=== PATIENT | female | born 1955 | race Caucasian/White ===

== ENCOUNTER 2020-12-18 08:05 | Emergency (ER) | payer MEDICARE ==
[2020-12-18 09:42] LABS: URINE BILIRUBIN - DIPSTICK NEGATIVE (NEGATIVE); URINE BLOOD DIPSTICK LARGE (NEGATIVE); URINE GLUCOSE - DIPSTICK >=1000 mg/dL (NEGATIVE); URINE KETONE 15 mg/dL (NEGATIVE); URINE LEUK ESTERASE NEGATIVE (NEGATIVE); URINE PH 5.5 (4.5-8.0); URINE PROTEIN - DIPSTICK NEGATIVE (NEG-TRACE); URINE UROBILINOGEN - DIPSTICK 0.2 E.U./dL (0.2)
[2020-12-18 09:48] LABS: URINE COLOR STRAW; URINE NITRITE - DIPSTICK POSITIVE (Negative)
[2020-12-18 09:51] LABS: URINE BACTERIA MANY hpf; URINE EPITHELIAL CELLS FEW EPI/hpf (0-FEW)
[2020-12-18 09:57] LABS: INTERNATIONAL NORMALIZED RATIO 1.1 RATIO (0.7-1.3); PROTHROMBIN TIME 11.1 SECONDS (9.0-12.5)
[2020-12-18 10:19] LABS: ALBUMIN 3.7 g/dL (3.2-5.0); ALKALINE PHOSPHATASE 83 u/l (38-126); BILIRUBIN, TOTAL 1.2 mg/dL (0.0-1.4); BUN 8 mg/dL (8-23); BUN/CREATININE RATIO 12 (12-20 (CALC)); CARBON DIOXIDE 11 mmol/l (22-30); CHLORIDE 80 mmol/l (95-108); CREATININE 0.6 mg/dL (0.5-1.0); ETHYL ALCOHOL 0 mg/dl (0-30); GFR > 60 ML/MIN (>=60 (CALC)); GFR FOR AFR.AMER. > 60 ML/MIN (>=60 (CALC)); LIPASE 131 u/l (23-300); POTASSIUM 3.9 mmol/l (3.5-5.1); SGOT/AST 126 u/l (9-36); TOTAL PROTEIN 6.1 g/dL (6.3-8.2)
[2020-12-18 10:21] LABS: HEMATOCRIT 38.5 % (37.0-47.0); HEMOGLOBIN 14.6 g/dl (12.0-16.0); IMMATURE GRANULOCYTES 1.5 % (0.0-5.0); MEAN CELL VOLUME 84.1 fL CALC (80.0-100.0); MEAN CORPUSCULAR HGB 31.9 pG CALC (26.0-32.0); MEAN CORPUSCULAR HGB CONC 37.9 g/dL CAL (32.0-36.0); NEUT# 17.53 thou/uL (2.00-7.15); RED BLOOD COUNT 4.58 mill/uL (4.20-5.60); RED CELL DISTRI WIDTH 11.5 % (11.5-15.5)
[2020-12-18 10:32] LABS: ANION GAP 22 (6-22 (CALC)); CPK > 3200 u/l (30-165)
[2020-12-18 10:36] LABS: SODIUM 109 mmol/l (137-146)
[2020-12-18 10:37] LABS: MYOGLOBIN > 2000 ng/mL (0 - 62)
[2020-12-18 11:18] VITALS: BP 152/92
--- NOTE | 2020-12-20 11:55 | NUR ---
FINAL URINE CULTURE SHOWS E.COLI. CALLED AND FAXED DOWN THE RESULTS TO [facility] AT [phone] ON 12/20/20.
== END 2020-12-18 11:18 | disposition short-term general hospital (02) ==
LOC: ED 08:05
PROC: 0T9B70Z Drainage of Bladder with Drainage Device, Via Natural or Artificial Opening (ICD-10-PCS; principal; 2020-12-18)
DX: A41.9 Sepsis, unspecified organism (principal); R65.20 Severe sepsis without septic shock; I21.4 Non-ST elevation (NSTEMI) myocardial infarction; R56.9 Unspecified convulsions; E87.1 Hypo-osmolality and hyponatremia; F03.90 Unspecified dementia, unspecified severity, without behavioral disturbance, psychotic disturbance, mood disturbance, and anxiety; F20.9 Schizophrenia, unspecified; E66.9 Obesity, unspecified; R82.71 Bacteriuria; Z20.822 Contact with and (suspected) exposure to COVID-19
CPT/HCPCS: J1953; J2060

== ENCOUNTER 2021-03-22 17:17 | Emergency (ER) | payer MEDICARE ==
[~2021-03-22] VITALS: Ht 170.2 cm; Wt 72.0 kg
[2021-03-22 18:38] LABS: IMMATURE GRANULOCYTES 0.5 % (0.0-5.0); MEAN CORPUSCULAR HGB 30.3 pG CALC (26.0-32.0); MEAN CORPUSCULAR HGB CONC 33.9 g/dL CAL (32.0-36.0); NEUT# 6.18 thou/uL (2.00-7.15); RED BLOOD COUNT 5.28 mill/uL (4.20-5.60); RED CELL DISTRI WIDTH 12.4 % (11.5-15.5)
[2021-03-22 18:41] LABS: HEMATOCRIT 47.2 % (37.0-47.0); MEAN CELL VOLUME 89.4 fL CALC (80.0-100.0)
[2021-03-22 18:50] LABS: ALKALINE PHOSPHATASE 97 u/l (38-126); ANION GAP 18 (6-22 (CALC)); BILIRUBIN, TOTAL 0.9 mg/dL (0.0-1.4); BUN 13 mg/dL (8-23); BUN/CREATININE RATIO 15 (12-20 (CALC)); CARBON DIOXIDE 22 mmol/l (22-30); CHLORIDE 95 mmol/l (95-108); CREATININE 0.9 mg/dL (0.5-1.0); GFR > 60 ML/MIN (>=60 (CALC)); GFR FOR AFR.AMER. > 60 ML/MIN (>=60 (CALC)); POTASSIUM 4.5 mmol/l (3.5-5.1); SODIUM 130 mmol/l (137-146)
[2021-03-22 18:51] LABS: ALBUMIN 4.7 g/dL (3.2-5.0); SGOT/AST 23 u/l (9-36); TOTAL PROTEIN 7.8 g/dL (6.3-8.2)
[2021-03-22 20:20] LABS: URINE BILIRUBIN - DIPSTICK NEGATIVE (NEGATIVE); URINE BLOOD DIPSTICK NEGATIVE (NEGATIVE); URINE COLOR YELLOW; URINE GLUCOSE - DIPSTICK NEGATIVE (NEGATIVE); URINE KETONE NEGATIVE (NEGATIVE); URINE LEUK ESTERASE NEGATIVE (NEGATIVE); URINE PROTEIN - DIPSTICK NEGATIVE (NEG-TRACE); URINE UROBILINOGEN - DIPSTICK 0.2 E.U./dL (0.2)
[2021-03-22 20:21] LABS: URINE NITRITE - DIPSTICK NEGATIVE (Negative)
[2021-03-22 21:15] VITALS: BP 148/75
== END 2021-03-22 21:15 | disposition home or self-care (01) ==
LOC: ED 17:17
PROVIDERS: Emergency Medicine
PROC: 0T9B70Z Drainage of Bladder with Drainage Device, Via Natural or Artificial Opening (ICD-10-PCS; principal; 2021-03-22)
DX: F20.9 Schizophrenia, unspecified (principal); R33.9 Retention of urine, unspecified; E11.9 Type 2 diabetes mellitus without complications

== ENCOUNTER 2021-10-26 15:48 | Emergency (ER) | payer MEDICARE ==
[~2021-10-26] VITALS: Ht 170.2 cm; Wt 100.0 kg
[2021-10-26] VITALS (20 sets, daily range): BP systolic 128–165; BP diastolic 78–122
[2021-10-26 16:13] LABS: HEMATOCRIT 42.9 % (37.0-47.0); IMMATURE GRANULOCYTES 0.6 % (0.0-5.0); MEAN CELL VOLUME 91.3 fL CALC (80.0-100.0); MEAN CORPUSCULAR HGB 31.9 pG CALC (26.0-32.0); NEUT# 6.88 thou/uL (2.00-7.15); RED BLOOD COUNT 4.7 mill/uL (4.20-5.60); RED CELL DISTRI WIDTH 12.2 % (11.5-15.5)
[2021-10-26 16:28] LABS: PROTHROMBIN TIME 10.1 SECONDS (9.0-12.5)
[2021-10-26 16:29] LABS: ALBUMIN 5.3 g/dL (3.2-5.0); ALKALINE PHOSPHATASE 107 u/l (38-126); BILIRUBIN, TOTAL 0.6 mg/dL (0.0-1.4); BUN 14 mg/dL (8-23); BUN/CREATININE RATIO 14 (12-20 (CALC)); CARBON DIOXIDE 18 mmol/l (22-30); GFR FOR AFR.AMER. > 60 ML/MIN (>=60 (CALC)); GFR OTHER RACES 55 ML/MIN (>=60 (CALC)); POTASSIUM 4.4 mmol/l (3.5-5.1); SGOT/AST 31 u/l (9-36); SODIUM 124 mmol/l (137-146); TOTAL PROTEIN 8.5 g/dL (6.3-8.2)
[2021-10-26 16:36] LABS: ANION GAP 31 (6-22 (CALC)); CHLORIDE 79 mmol/l (95-108)
[2021-10-26 18:25] LABS: URINE BILIRUBIN - DIPSTICK NEGATIVE (NEGATIVE); URINE BLOOD DIPSTICK NEGATIVE (NEGATIVE); URINE COLOR YELLOW; URINE GLUCOSE - DIPSTICK NEGATIVE (NEGATIVE); URINE KETONE TRACE mg/dL (NEGATIVE); URINE LEUK ESTERASE NEGATIVE (NEGATIVE); URINE PROTEIN - DIPSTICK NEGATIVE (NEG-TRACE); URINE SPECIFIC GRAVITY 1.025; URINE UROBILINOGEN - DIPSTICK 0.2 E.U./dL (0.2)
[2021-10-26 18:27] LABS: URINE NITRITE - DIPSTICK NEGATIVE (Negative)
== END 2021-10-26 21:50 | disposition short-term general hospital (02) ==
LOC: ED 15:48
PROVIDERS: Family Medicine
PROC: 02HV33Z Insertion of Infusion Device into Superior Vena Cava, Percutaneous Approach (ICD-10-PCS; principal; 2021-10-26)
PROC: 0BH17EZ Insertion of Endotracheal Airway into Trachea, Via Natural or Artificial Opening (ICD-10-PCS; 2021-10-26)
PROC: 5A1935Z Respiratory Ventilation, Less than 24 Consecutive Hours (ICD-10-PCS; 2021-10-26)
PROC: 0T9B70Z Drainage of Bladder with Drainage Device, Via Natural or Artificial Opening (ICD-10-PCS; 2021-10-26)
DX: I63.9 Cerebral infarction, unspecified (principal); R47.81 Slurred speech; A41.9 Sepsis, unspecified organism; E87.2 Acidosis; I10 Essential (primary) hypertension; E11.9 Type 2 diabetes mellitus without complications
CPT/HCPCS: J1953; J2060; Q3014; Q9967

== ENCOUNTER 2021-11-01 19:15 | Emergency (ER) | payer MEDICARE ==
[~2021-11-01] VITALS: Ht 170.2 cm; Wt 75.4 kg
[2021-11-01] VITALS (15 sets, daily range): BP systolic 143–177; BP diastolic 95–120
[2021-11-01 20:26] LABS: IMMATURE GRANULOCYTES 0.3 % (0.0-5.0); MEAN CELL VOLUME 95.1 fL CALC (80.0-100.0); MEAN CORPUSCULAR HGB 31.7 pG CALC (26.0-32.0); MEAN CORPUSCULAR HGB CONC 33.3 g/dL CAL (32.0-36.0); NEUT# 3.37 thou/uL (2.00-7.15); RED BLOOD COUNT 3.66 mill/uL (4.20-5.60); RED CELL DISTRI WIDTH 13.1 % (11.5-15.5)
[2021-11-01 20:28] LABS: HEMATOCRIT 34.8 % (37.0-47.0); HEMOGLOBIN 11.6 g/dl (12.0-16.0)
[2021-11-01 20:39] LABS: BILIRUBIN, TOTAL 0.7 mg/dL (0.0-1.4); BUN 16 mg/dL (8-23); BUN/CREATININE RATIO 17 (12-20 (CALC)); CARBON DIOXIDE 21 mmol/l (22-30); CREATININE 0.9 mg/dL (0.5-1.0); GFR FOR AFR.AMER. > 60 ML/MIN (>=60 (CALC)); GFR OTHER RACES > 60 ML/MIN (>=60 (CALC)); POTASSIUM 3.9 mmol/l (3.5-5.1)
[2021-11-01 20:40] LABS: ALBUMIN 3.9 g/dL (3.2-5.0); ALKALINE PHOSPHATASE 185 u/l (38-126); ANION GAP 13 (6-22 (CALC)); CHLORIDE 103 mmol/l (95-108); SGOT/AST 70 u/l (9-36); SODIUM 133 mmol/l (137-146); TOTAL PROTEIN 6.5 g/dL (6.3-8.2)
[2021-11-01 21:27] LABS: ETHYL ALCOHOL 0 mg/dl (0-30)
[2021-11-01] MEDS ORDERED: BENADRYL ALLERG25 MG PO (22:18)
[2021-11-01] MEDS ORDERED: KEFLEX500 MG PO (22:18)
== END 2021-11-01 22:30 | disposition home or self-care (01) ==
LOC: ED 19:15
PROVIDERS: Emergency Medicine
DX: T14.8XXA Other injury of unspecified body region, initial encounter (principal); E11.9 Type 2 diabetes mellitus without complications; W57.XXXA Bitten or stung by nonvenomous insect and other nonvenomous arthropods, initial encounter; Y92.007 Garden or yard of unspecified non-institutional (private) residence as the place of occurrence of the external cause

== ENCOUNTER 2021-11-12 13:12 | Observation (INO) | payer MEDICARE ==
[2021-11-12] VITALS (22 sets, daily range): BP systolic 92–135; BP diastolic 59–89
[~2021-11-12] VITALS: Ht 170.2 cm; Wt 81.8 kg
[~2021-11-12 13:12] MED LIST: BENADRYL ALLERG25 MG PO; KEFLEX500 MG PO
--- NOTE | 2021-11-12 13:20 | NUR ---
PT ESCORTED VIA EMS STRETCHER TO ROOM 12 FOR EVAL OF HYPOTENSION AND DIZZINESS WITH AMS AFTER TAKING NEW SEIZURE MEDICATION
--- NOTE | 2021-11-12 14:30 | NUR ---
Reassessment of patient completed. No distress noted.
[2021-11-12 14:34] LABS: HEMATOCRIT 37.3 % (37.0-47.0); HEMOGLOBIN 13.1 g/dl (12.0-16.0); IMMATURE GRANULOCYTES 0.9 % (0.0-5.0); MEAN CELL VOLUME 92.6 fL CALC (80.0-100.0); MEAN CORPUSCULAR HGB 32.5 pG CALC (26.0-32.0); MEAN CORPUSCULAR HGB CONC 35.1 g/dL CAL (32.0-36.0); NEUT# 7.35 thou/uL (2.00-7.15); RED BLOOD COUNT 4.03 mill/uL (4.20-5.60); RED CELL DISTRI WIDTH 12.5 % (11.5-15.5)
[2021-11-12 14:54] LABS: ALKALINE PHOSPHATASE 104 u/l (38-126); BILIRUBIN, TOTAL 0.5 mg/dL (0.0-1.4); BUN 13 mg/dL (8-23); BUN/CREATININE RATIO 15 (12-20 (CALC)); CARBON DIOXIDE 20 mmol/l (22-30); CREATININE 0.9 mg/dL (0.5-1.0); GFR FOR AFR.AMER. > 60 ML/MIN (>=60 (CALC)); GFR OTHER RACES > 60 ML/MIN (>=60 (CALC)); POTASSIUM 3.4 mmol/l (3.5-5.1); TOTAL PROTEIN 6.8 g/dL (6.3-8.2)
[2021-11-12 14:55] LABS: ANION GAP 16 (6-22 (CALC)); CHLORIDE 84 mmol/l (95-108); SGOT/AST 17 u/l (9-36)
[2021-11-12 14:56] LABS: SODIUM 117 mmol/l (137-146)
--- NOTE | 2021-11-12 15:30 | NUR ---
Reassessment of patient completed. No distress noted.
[2021-11-12 17:02] LABS: URINE BILIRUBIN - DIPSTICK NEGATIVE (NEGATIVE); URINE BLOOD DIPSTICK NEGATIVE (NEGATIVE); URINE COLOR YELLOW; URINE GLUCOSE - DIPSTICK NEGATIVE (NEGATIVE); URINE KETONE TRACE mg/dL (NEGATIVE); URINE LEUK ESTERASE NEGATIVE (NEGATIVE); URINE PROTEIN - DIPSTICK NEGATIVE (NEG-TRACE); URINE SPECIFIC GRAVITY 1.025; URINE UROBILINOGEN - DIPSTICK 0.2 E.U./dL (0.2)
[2021-11-12 17:06] LABS: URINE NITRITE - DIPSTICK NEGATIVE (Negative)
[2021-11-12] MEDS ORDERED: LIPITOR20 M1 PO (18:32)
[2021-11-12] MEDS ORDERED: ATENOLOL50 MG PO (18:32)
[2021-11-12] MEDS ORDERED: FAMOTIDINE20 M1 PO (18:33)
[2021-11-12] MEDS ORDERED: DIVALPROEX SOD250 MG PO (18:33)
[2021-11-12] MEDS ORDERED: HYDROCHLOROT25 MG PO (18:34)
[2021-11-12] MEDS ORDERED: LISINOPRIL10 MG PO (18:35)
[2021-11-12] MEDS ORDERED: METFORMIN500 M2 PO (18:36)
--- NOTE | 2021-11-12 18:36 | NUR ---
PATIENT TO FLOOR AT THIS TIME.
--- NOTE | 2021-11-12 18:45 | NUR ---
PATIENT ARRIVED VIA STRETCHER FROM ER ACCOMANIED BY NURSE AND GRAND-DAUGHTER. ALERT AND ORIENTED X 4 .ORIENTED TO ROOM AND PLAN OF CARE TO PREVENT FALLS
--- NOTE | 2021-11-12 18:54 | NUR ---
GRANDDAUGHTER CURRENTLY BEDSIDE
[2021-11-12 19:58] LABS: BUN 13 mg/dL (8-23); BUN/CREATININE RATIO 16 (12-20 (CALC)); CHLORIDE 83 mmol/l (95-108); CREATININE 0.8 mg/dL (0.5-1.0); GFR FOR AFR.AMER. > 60 ML/MIN (>=60 (CALC)); GFR OTHER RACES > 60 ML/MIN (>=60 (CALC))
[2021-11-12 20:04] LABS: ANION GAP 13 (6-22 (CALC)); CARBON DIOXIDE 26 mmol/l (22-30); SODIUM 118 mmol/l (137-146)
[2021-11-12 22:17] LABS: ANION GAP 13 (6-22 (CALC)); BUN 12 mg/dL (8-23); BUN/CREATININE RATIO 15 (12-20 (CALC)); CARBON DIOXIDE 26 mmol/l (22-30); CHLORIDE 83 mmol/l (95-108); CREATININE 0.8 mg/dL (0.5-1.0); GFR FOR AFR.AMER. > 60 ML/MIN (>=60 (CALC)); GFR OTHER RACES > 60 ML/MIN (>=60 (CALC)); POTASSIUM 3.7 mmol/l (3.5-5.1)
[2021-11-12 22:21] LABS: SODIUM 118 mmol/l (137-146)
[2021-11-13] VITALS (8 sets, daily range): BP systolic 110–157; BP diastolic 71–91
[2021-11-13 02:46] LABS: ANION GAP 11 (6-22 (CALC)); BUN 11 mg/dL (8-23); BUN/CREATININE RATIO 16 (12-20 (CALC)); CARBON DIOXIDE 28 mmol/l (22-30); CHLORIDE 84 mmol/l (95-108); CREATININE 0.7 mg/dL (0.5-1.0); GFR FOR AFR.AMER. > 60 ML/MIN (>=60 (CALC)); GFR OTHER RACES > 60 ML/MIN (>=60 (CALC)); POTASSIUM 3.6 mmol/l (3.5-5.1); SODIUM 120 mmol/l (137-146)
--- NOTE | 2021-11-13 04:02 | NUR ---
UP TO BSC WITH ASSISTNC C/O "SLIGHT CHEST PAIN DISCOMFORT OFF AND ON X SEVERAL WEEKS" NONSPECIFIC DISCRIBTION NO SOB NOTED EKG RYHTHM UNCHANGED MOBILE ENGINEER SHOWS SINUS RHYTHM NO ECTOPY.
[2021-11-13 05:47] LABS: HEMATOCRIT 34.6 % (37.0-47.0); HEMOGLOBIN 12.5 g/dl (12.0-16.0); MEAN CELL VOLUME 88.3 fL CALC (80.0-100.0); MEAN CORPUSCULAR HGB 31.9 pG CALC (26.0-32.0); MEAN CORPUSCULAR HGB CONC 36.1 g/dL CAL (32.0-36.0); RED BLOOD COUNT 3.92 mill/uL (4.20-5.60); RED CELL DISTRI WIDTH 12.4 % (11.5-15.5)
[2021-11-13 06:44] LABS: ANION GAP 11 (6-22 (CALC)); BUN 12 mg/dL (8-23); BUN/CREATININE RATIO 18 (12-20 (CALC)); CARBON DIOXIDE 27 mmol/l (22-30); CHLORIDE 85 mmol/l (95-108); CREATININE 0.7 mg/dL (0.5-1.0); GFR FOR AFR.AMER. > 60 ML/MIN (>=60 (CALC)); GFR OTHER RACES > 60 ML/MIN (>=60 (CALC)); POTASSIUM 3.8 mmol/l (3.5-5.1)
[2021-11-13 06:52] LABS: SODIUM 119 mmol/l (137-146)
--- NOTE | 2021-11-13 08:00 | NUR ---
GOT REPORT FROM MONEY ROOM TELLER NURSE. PATIENT DENIES ANY DISCOMFORT AT THIS TIME. PATIENT FINISHED BREAKFAST. DUE TO BP INSTABILITY ADVISED PATIENT NOT TO GET OUT OF BED WITH OUT HELP FROM STAFF. PATIENT VERBALIZED UNDERSTANDING. FALL PRECAUTIONS IN PLACE. CALL LIGHT AND BEDSIDE TABLE WITH IN REACH.
[2021-11-13 10:14] LABS: ANION GAP 14 (6-22 (CALC)); BUN 10 mg/dL (8-23); BUN/CREATININE RATIO 13 (12-20 (CALC)); CARBON DIOXIDE 27 mmol/l (22-30); CHLORIDE 85 mmol/l (95-108); CREATININE 0.7 mg/dL (0.5-1.0); GFR FOR AFR.AMER. > 60 ML/MIN (>=60 (CALC)); GFR OTHER RACES > 60 ML/MIN (>=60 (CALC)); MAGNESIUM 1.3 mg/dL (1.6-2.3); POTASSIUM 3.6 mmol/l (3.5-5.1); SODIUM 122 mmol/l (137-146)
[2021-11-13] MEDS ORDERED: TRILEPTAL300 M1 PO (11:05)
[2021-11-13] MEDS ORDERED: LEVETIRACETAM500 MG PO (11:06)
[2021-11-13] MEDS ORDERED: MELOXICAM7.5 MG PO (11:07)
[2021-11-13] MEDS ORDERED: LAMICTAL XR50 MG PO (11:08)
--- NOTE | 2021-11-13 12:00 | NUR ---
PATIENT ASSISTED TO USE BATHROOM. PATIENT DENIES ANY NEEDS AT THIS TIME. ADVISED TO CALL IF SHE NEEDED ANYTHING.
--- NOTE | 2021-11-13 15:11 | NUR ---
Patient is screened for intervention and may benefit if medical agrees
--- NOTE | 2021-11-13 16:00 | NUR ---
PATIENT IS SLEEPING. NO SXS OF DISTRESS NOTED. FALL PRECAUTIONS IN PLACE.
--- NOTE | 2021-11-13 16:03 | NUR ---
Patient was educated numerous of times to use the call light when she was finished on the comode, because she is a fall risk. Patient's spouse assisted her back to bed. Patient did not use the call light for assistance back to bed.
--- NOTE | 2021-11-13 19:40 | NUR ---
AWAKE ALERT ORIENTED X 3 PLEASANT AND COOPERATIVE USES CALL-LIGHT FOR BSC. DENIES PAIN OR DISCOMFORT SHORT TERM MEMORY DEFICIT NOTED WHEN EXPLANATION OF BED ALARMS FOR FALL PREVENTION. OBSERVED FILLING PITCHER WITH WATER FROM SINK.
--- NOTE | 2021-11-13 22:16 | NUR ---
UP OUT OF BED TO USE BSC URINE PALE YELLOW CLEAR. PATIENT WATER PITCHER EMPTY. WILL MONITOR CLOSELY FOR WATER INTOXIFICATION. DR REYNOLDS UPDATED ON CONDITION PATIENT PLACED ON 2 LITER FLUID RESTRICTION PER DAY.
--- NOTE | 2021-11-14 00:30 | NUR ---
PATIENT RESTING QUIETLY IN BED RESPIRATIONS EVEN AND UNLABORED ORE GRADER SHOWS SINUS RHYTHM NO ECTOPY. WILL CONTINUE TO MONITOR
--- NOTE | 2021-11-14 03:31 | NUR ---
RESTING QUIETLY IN BED WITH EYES CLOSED. RESPIRATIONS EVEN AND UNLABORED. IV SITE AT LEFT LOWER FOREARM OUT OF VEIN CATHETER INTACT. SITE HEALTHY NO BLEEEDING OR SWELLING NOTED.
[2021-11-14 03:47] VITALS: BP 142/89
[2021-11-14 05:27] LABS: HEMATOCRIT 37.8 % (37.0-47.0); HEMOGLOBIN 13.4 g/dl (12.0-16.0); MEAN CELL VOLUME 89.8 fL CALC (80.0-100.0); MEAN CORPUSCULAR HGB 31.8 pG CALC (26.0-32.0); MEAN CORPUSCULAR HGB CONC 35.4 g/dL CAL (32.0-36.0); RED BLOOD COUNT 4.21 mill/uL (4.20-5.60); RED CELL DISTRI WIDTH 12.5 % (11.5-15.5)
[2021-11-14 05:40] LABS: ANION GAP 16 (6-22 (CALC)); BUN 9 mg/dL (8-23); BUN/CREATININE RATIO 13 (12-20 (CALC)); CARBON DIOXIDE 25 mmol/l (22-30); CHLORIDE 91 mmol/l (95-108); CREATININE 0.7 mg/dL (0.5-1.0); GFR FOR AFR.AMER. > 60 ML/MIN (>=60 (CALC)); GFR OTHER RACES > 60 ML/MIN (>=60 (CALC)); MAGNESIUM 1.4 mg/dL (1.6-2.3); POTASSIUM 4.3 mmol/l (3.5-5.1); SODIUM 127 mmol/l (137-146)
[2021-11-14 06:30] VITALS: BP 147/88
--- NOTE | 2021-11-14 07:00 | NUR ---
RECEIVED REPORT FROM HEAVY EQUIPMENT SUPERVISOR RN. PATIENT IS SITTING ON SIDE OF THE BED WAITING FOR BREAKFAST. PATIENT IS A&O WITH SOME CONFUSION. PATIENT IS ABLE TO MAKE NEEDS KNOWN. NO SIGNS OF DISTRESS OR PAIN NOTED NOR VERBALIZED AT THIS TIME. BED IN LOWEST POSITION, CALL LIGHT AND BESIDE TABLE WITHIN REACH.
[2021-11-14 10:31] VITALS: BP 147/92
--- NOTE | 2021-11-14 12:00 | NUR ---
PATIENT IS SITTING ON THE SIDE OF THE BED EATING LUNCH. NO SIGNS OF DISTRESS OR PAIN NOTED OR VERBALIZED AT THIS TIME. FALL & SAFETY PRECAUTIONS IN PLACE, BED ALARM ACTIVATED. BED IN LOWEST POSITION, CALL LIGHT AND BEDSIDE TABLE WITHIN REACH.
--- NOTE | 2021-11-14 14:28 | NUR ---
Discharge instructions given. Patient verbalizes understanding of same. Discharged in condition via Wheelchair to Home with staff. All belongings sent with pt.
[2021-11-14 14:38] VITALS: BP 136/74
== END 2021-11-14 15:15 | disposition home or self-care (01) ==
LOC: ED 13:12 → ED-I 13:49 → ED 13:49 → ED-I 16:30 → ED 16:56 → MS2 16:57
PROVIDERS: Family Medicine; ADMIT Hospitalist; ATTEND Hospitalist
DX: R55 Syncope and collapse (principal); E87.1 Hypo-osmolality and hyponatremia; E87.2 Acidosis; I10 Essential (primary) hypertension; E11.9 Type 2 diabetes mellitus without complications; R56.9 Unspecified convulsions; F32.A Depression, unspecified; Z79.84 Long term (current) use of oral hypoglycemic drugs; Z20.822 Contact with and (suspected) exposure to COVID-19
CPT/HCPCS: J1650; J3475

== ENCOUNTER 2021-12-25 08:48 | Inpatient (IN) | payer MEDICARE ==
[~2021-12-25] VITALS: Ht 170.2 cm; Wt 75.5 kg
[~2021-12-25 08:48] MED LIST changes: +ATENOLOL50 MG PO; +DIVALPROEX SOD250 MG PO; +FAMOTIDINE20 M1 PO; +HYDROCHLOROT25 MG PO; +LAMICTAL XR50 MG PO; +LEVETIRACETAM500 MG PO; +LIPITOR20 M1 PO; +LISINOPRIL20 M1 PO; +MELOXICAM7.5 MG PO; +METFORMIN500 M2 PO; +TRILEPTAL300 M1 PO
[2021-12-25 09:16] LABS: HEMATOCRIT 42.7 % (37.0-47.0); HEMOGLOBIN 15.2 g/dl (12.0-16.0); IMMATURE GRANULOCYTES 0.2 % (0.0-5.0); MEAN CELL VOLUME 89.5 fL CALC (80.0-100.0); MEAN CORPUSCULAR HGB 31.9 pG CALC (26.0-32.0); MEAN CORPUSCULAR HGB CONC 35.6 g/dL CAL (32.0-36.0); NEUT# 3.76 thou/uL (2.00-7.15); RED BLOOD COUNT 4.77 mill/uL (4.20-5.60); RED CELL DISTRI WIDTH 12.2 % (11.5-15.5)
[2021-12-25 10:00] LABS: ALBUMIN 4.5 g/dL (3.2-5.0); ALKALINE PHOSPHATASE 61 u/l (38-126); ANION GAP 15 (6-22 (CALC)); BILIRUBIN, TOTAL 0.5 mg/dL (0.0-1.4); BUN 8 mg/dL (8-23); BUN/CREATININE RATIO 12 (12-20 (CALC)); CARBON DIOXIDE 24 mmol/l (22-30); CHLORIDE 88 mmol/l (95-108); CREATININE 0.7 mg/dL (0.5-1.0); GFR FOR AFR.AMER. > 60 ML/MIN (>=60 (CALC)); GFR OTHER RACES > 60 ML/MIN (>=60 (CALC)); POTASSIUM 4.3 mmol/l (3.5-5.1); SGOT/AST 17 u/l (9-36); SODIUM 122 mmol/l (137-146); TOTAL PROTEIN 7.5 g/dL (6.3-8.2)
[2021-12-25] MEDS ORDERED: ASPIRIN81 MG PO (10:15)
[2021-12-25] MEDS ORDERED: HYDROCHLOROT12.5 M1 PO (10:16)
[2021-12-25] MEDS ORDERED: TRILEPTAL150 M1 PO (10:18)
[2021-12-25 10:43] LABS: URINE BILIRUBIN - DIPSTICK NEGATIVE (NEGATIVE); URINE BLOOD DIPSTICK NEGATIVE (NEGATIVE); URINE COLOR YELLOW; URINE GLUCOSE - DIPSTICK NEGATIVE (NEGATIVE); URINE KETONE TRACE mg/dL (NEGATIVE); URINE LEUK ESTERASE NEGATIVE (NEGATIVE); URINE PROTEIN - DIPSTICK NEGATIVE (NEG-TRACE); URINE SPECIFIC GRAVITY 1.015
[2021-12-25 10:44] LABS: URINE NITRITE - DIPSTICK NEGATIVE (Negative)
[2021-12-25 11:30] VITALS: BP 143/86
[2021-12-25 11:32] VITALS: BP 154/86
[2021-12-25 11:45] VITALS: BP 138/79
[2021-12-25 15:38] VITALS: BP 145/85
[2021-12-25 19:24] VITALS: BP 156/97
[2021-12-25 23:59] VITALS: BP 160/84
[2021-12-26] VITALS (8 sets, daily range): BP systolic 138–180; BP diastolic 90–105
[2021-12-26 06:10] LABS: HEMATOCRIT 46.5 % (37.0-47.0); HEMOGLOBIN 16.3 g/dl (12.0-16.0); IMMATURE GRANULOCYTES 0.3 % (0.0-5.0); MEAN CELL VOLUME 90.6 fL CALC (80.0-100.0); MEAN CORPUSCULAR HGB 31.8 pG CALC (26.0-32.0); MEAN CORPUSCULAR HGB CONC 35.1 g/dL CAL (32.0-36.0); NEUT# 4.09 thou/uL (2.00-7.15); RED BLOOD COUNT 5.13 mill/uL (4.20-5.60); RED CELL DISTRI WIDTH 12.4 % (11.5-15.5)
[2021-12-26 06:38] LABS: ALKALINE PHOSPHATASE 66 u/l (38-126); BILIRUBIN, TOTAL 0.5 mg/dL (0.0-1.4); BUN 10 mg/dL (8-23); BUN/CREATININE RATIO 16 (12-20 (CALC)); CARBON DIOXIDE 23 mmol/l (22-30); CHLORIDE 98 mmol/l (95-108); CREATININE 0.6 mg/dL (0.5-1.0); GFR FOR AFR.AMER. > 60 ML/MIN (>=60 (CALC)); GFR OTHER RACES > 60 ML/MIN (>=60 (CALC)); POTASSIUM 4.4 mmol/l (3.5-5.1); SGOT/AST 20 u/l (9-36); TOTAL PROTEIN 7.8 g/dL (6.3-8.2)
[2021-12-26 06:40] LABS: ANION GAP 16 (6-22 (CALC)); MAGNESIUM 2.2 mg/dL (1.6-2.3); SODIUM 133 mmol/l (137-146)
[2021-12-26 15:51] LABS: ANION GAP 15 (6-22 (CALC)); BUN 10 mg/dL (8-23); BUN/CREATININE RATIO 14 (12-20 (CALC)); CARBON DIOXIDE 26 mmol/l (22-30); CHLORIDE 98 mmol/l (95-108); CREATININE 0.7 mg/dL (0.5-1.0); GFR FOR AFR.AMER. > 60 ML/MIN (>=60 (CALC)); GFR OTHER RACES > 60 ML/MIN (>=60 (CALC)); POTASSIUM 4.5 mmol/l (3.5-5.1); SODIUM 134 mmol/l (137-146)
[2021-12-27] VITALS (7 sets, daily range): BP systolic 138–173; BP diastolic 71–100
[2021-12-27 05:24] LABS: ANION GAP 15 (6-22 (CALC)); BUN 11 mg/dL (8-23); BUN/CREATININE RATIO 14 (12-20 (CALC)); CARBON DIOXIDE 24 mmol/l (22-30); CHLORIDE 102 mmol/l (95-108); CREATININE 0.7 mg/dL (0.5-1.0); GFR FOR AFR.AMER. > 60 ML/MIN (>=60 (CALC)); GFR OTHER RACES > 60 ML/MIN (>=60 (CALC)); MAGNESIUM 1.8 mg/dL (1.6-2.3); POTASSIUM 4.3 mmol/l (3.5-5.1); SODIUM 136 mmol/l (137-146)
[2021-12-27] MEDS ORDERED: COZAAR50 MG PO (13:33)
[2021-12-27] MEDS ORDERED: SOD CHLORIDE1 G2 OD (13:34)
== END 2021-12-27 15:20 | disposition home or self-care (01) | DRG 641 ==
LOC: ED 08:48 → ED-I 10:20 → ED 10:45 → MS2 10:46
PROVIDERS: Emergency Medicine; Nurse Practitioner; ADMIT Internal Medicine; ATTEND Internal Medicine
DX: E87.1 Hypo-osmolality and hyponatremia (principal); F33.9 Major depressive disorder, recurrent, unspecified; T50.2X5A Adverse effect of carbonic-anhydrase inhibitors, benzothiadiazides and other diuretics, initial encounter; E83.42 Hypomagnesemia; I10 Essential (primary) hypertension; E11.9 Type 2 diabetes mellitus without complications; G40.909 Epilepsy, unspecified, not intractable, without status epilepticus; F20.9 Schizophrenia, unspecified; G89.29 Other chronic pain; Z79.84 Long term (current) use of oral hypoglycemic drugs; Z20.822 Contact with and (suspected) exposure to COVID-19
CPT/HCPCS: J1650; J3475; S0166